=== PATIENT | female | born 1975 | race Caucasian/White ===

== ENCOUNTER 2017-08-17 16:37 | Emergency (ER) | payer OTHER ==
[2017-08-17 16:42] VITALS: BP 152/94; PULSE 98; TEMP 98.2; BMI 38.0
[2017-08-17] MEDS ORDERED: IBUPROFEN 600 MG TABLET (FP) PO ONE ×2 (17:14→17:15)
--- NOTE | 2017-08-17 17:15 | PDOC ---
History of Present Illness - General Chief Complaint: Ear Problem Stated Complaint: EAR INFECTION Time Seen by Provider: 08/17/17 16:54 - History of Present Illness Initial Comments: 08/17/17 17:10 CHIEF COMPLAINT: ear pain HISTORY OF PRESENT ILLNESS: 41 yo F with no PMH [facility] with ear pain x 3 days. PAtient states she went to her doctor today and diagnosed with ear infection but was prescribed medication that was "too expensive" and not covered by her insurance when she went to the pharmacy. Patient is not sure what the medication was. Patient denies fever, chills, vomiting, diarrhea. No recent travel or sick contacts. PAST MEDICAL HISTORY: Denies past medical history FAMILY HISTORY: Denies SOCIAL HISTORY: Denies tobacco, alcohol, illicit drug use. SURGICAL HISTORY: Denies ALLERGIES: No known drug allergies REVIEW OF SYSTEMS General/Constitutional: Denies fever or chills. HEENT: b/l ear pain Cardiovascular: Denies chest pain or shortness of breath. Respiratory: Denies cough, wheezing. PHYSICAL EXAM General Appearance: Well-appearing, appropriately dressed. No apparent distress. HEENT: Erythema and swelling to b/l auditory canals. EOMI, PERRLA, normal voice , pharynx normal. No conjunctival pallor. No photophobia, scleral icterus. Respiratory/Chest: Lungs CTAB. Cardiovascular: RRR. S1, S2. Musculoskeletal/Extremities: Normal inspection. FROM of all extremities. No tenderness to extremities, pedal edema, swelling, erythema or deformity. Integumentary: Appropriate color, dry, warm. No cyanosis, erythema, jaundice or rash Neurologic: secondary english teacher II-XII intact. Fully oriented, alert. Appropriate mood/affect. Motor strength 5/5. No appreciable EOM palsy, facial droop or sensory deficit. Past History - Past Medical History Allergies/Adverse Reactions: Allergies Allergy/AdvReac Type Severity Reaction Status Date / Time No Known Allergies Allergy Verified 08/17/17 16:41 Home Medications: Ambulatory Orders Ibuprofen 600 mg PO TID PRN #21 tablet 08/17/17 Neomycin/Polymyxn/Hc [Cortisporin Otic Solution -] 4 drop AU TID #1 bottle 08/17 Asthma: No Cancer: No Cardiac Disorders: No Diabetes: No HTN: No Seizures: No Thyroid Disease: No Other medical history: denies - Suicide/Smoking/Psychosocial Hx Smoking History: Never smoked Have you smoked in the past 12 months: No Information on smoking cessation initiated: No Hx Alcohol Use: No Drug/Substance Use Hx: No Substance Use Type: None Hx Substance Use Treatment: No *Physical Exam - Vital Signs Last Vital Signs Temp Pulse Resp BP Pulse Ox 98.2 F 98 H 18 152/94 100 08/17/17 16:39 08/17/17 16:39 08/17/17 16:39 08/17/17 16:39 08/17/17 16:39 Medical Decision Making - Medical Decision Making 08/17/17 17:14 41 yo F with no PMH [facility] to [facility] with ear pain x 3 days. Clinical presentation consistent with otitis externa. -corticosporin rx sent to pharm -ibuprofen for pain *DC/Admit/Observation/Transfer Diagnosis at time of Disposition: Otitis externa Qualifiers: Otitis externa type: unspecified type Chronicity: acute Laterality: bilateral Qualified Code(s): H60.503 - Unspecified acute noninfective otitis externa, bilateral - Discharge Dispostion Disposition: HOME Admit: No - Prescriptions Prescriptions: Neomycin/Polymyxn/Hc [Cortisporin Otic Solution -] 4 drop AU TID #1 bottle Ibuprofen 600 mg PO TID PRN #21 tablet PRN Reason: Pain - Referrals Referrals: Bailey Zavala MD [Primary Care Provider] - - Patient Instructions Printed Discharge Instructions: DI for Otitis Externa Additional Instructions: Please use medication as prescribed. Follow up with your primary care doctor next week. If you develop any increased pain, fever, chills, vomiting, diarrhea , or any new or worsening symptoms, please return to the ER.
== END 2017-08-17 17:21 | disposition home or self-care (01) ==
LOC: JERFT 16:37
DX: H60.503 Unspecified acute noninfective otitis externa, bilateral (principal)
CPT/HCPCS: 99281-25

== ENCOUNTER 2017-11-07 05:08 | Day surgery (SDC) | payer OTHER ==
[2017-11-06 07:35] VITALS: BMI 37.2
[2017-11-07] MEDS ORDERED: ACETAMINOPHEN INJECTION 100 ML IVPB ONE (06:56)
[2017-11-07] MEDS ORDERED: SUCCINYLCHOLINE CHLORIDE 200 MG/10 ML VIAL ONE (07:02)
[2017-11-07] MEDS ORDERED: ePHEDrine SULFATE 50 MG/1 ML AMPULE ONE (07:02)
[2017-11-07] MEDS ORDERED: MIDAZOLAM HCL 2 MG/2 ML SINGLE DOSE VIAL ONE ×2 (07:02)
[2017-11-07] MEDS ORDERED: PROPOFOL 20 ML ONE ×4 (07:02)
[2017-11-07] MEDS ORDERED: LIDOCAINE HCL/PF 2% SDV 5ML VIAL ONE (07:08)
--- NOTE | 2017-11-07 07:59 | HP ---
Admitting History and Physical - Admission Chief Complaint: Prolonged menses History of Present Illness: 42 yo Para 3 with 3 previous , diagnosed with menorrhagia, is Pre op for endometrial ablation History Source: Patient Limitations to Obtaining History: No Limitations - Past Medical History ...LMP: 10/31/17 ...: No - Past Surgical History Past Surgical History: Yes: - Smoking History Smoking history: Never smoked Have you smoked in the past 12 months: No - Alcohol/Substance Use Hx Alcohol Use: Yes (SOCIALLY) - Social History Usual Living Arrangement: Yes: With Spouse History of Recent Travel: No Home Medications - Allergies Allergies/Adverse Reactions: Allergies Allergy/AdvReac Type Severity Reaction Status Date / Time No Known Allergies Allergy Verified 11/07/17 07:10 - Home Medications Home Medications: Ambulatory Orders Multivitamin [One Daily] 1 each PO DAILY 11/06/17 Quincy-3 Fatty Acids [Quincy-3] 1,000 mg PO DAILY 11/06/17 Family Disease History - Family Disease History Family History: Unremarkable Review of Systems - Review of Systems Constitutional: reports: No Symptoms Eyes: reports: No Symptoms HENT: reports: No Symptoms Neck: reports: No Symptoms Cardiovascular: reports: No Symptoms Respiratory: reports: No Symptoms Gastrointestinal: reports: No Symptoms Breasts: reports: No Symptoms Reported Musculoskeletal: reports: No Symptoms Integumentary: reports: No Symptoms Neurological: reports: No Symptoms Endocrine: reports: No Symptoms Hematology/Lymphatic: reports: No Symptoms Psychiatric: reports: No Symptoms Pain Intensity: 0 Physical Examination Vital Signs: Vital Signs Temperature 98.0 F 11/07/17 07:09 Pulse Rate 78 11/07/17 07:09 Respiratory Rate 18 11/07/17 07:09 Blood Pressure 132/90 11/07/17 07:09 O2 Sat by Pulse Oximetry (%) 99 11/07/17 07:09 Constitutional: Yes: Well Nourished Eyes: Yes: Conjunctiva Clear HENT: Yes: Atraumatic Neck: Yes: Supple, Trachea Midline Cardiovascular: Yes: Regular Rate and Rhythm Respiratory: Yes: Regular, CTA Bilaterally Gastrointestinal: Yes: Normal Bowel Sounds Neurological: Yes: Alert, Oriented ...Motor Strength: WNL Psychiatric: Yes: Alert, Oriented Problem List - Problems (1) Menorrhagia Code(s): N92.0 - EXCESSIVE AND FREQUENT MENSTRUATION WITH REGULAR CYCLE Qualifiers: Menorrahagia type: with regular cycle Qualified Code(s): N92.0 - Excessive and frequent menstruation with regular cycle Assessment/Plan Menorrhagia Pre op for endometrial ablation Consent signed Anesthesia to see patient
[2017-11-07] MEDS ORDERED: ONDANSETRON 4 MG/2 ML VIAL ONE (08:13)
[2017-11-07] MEDS ORDERED: LIDOCAINE HCL 2% JELLY (5 ML/TUBE) ONE (08:16)
[2017-11-07] MEDS ORDERED: SODIUM CHLORIDE 0.9% P/F 10 ML VIAL IJ ONE (08:36)
[2017-11-07] MEDS ORDERED: ONDANSETRON 4 MG/2 ML VIAL IVPUSH PRN (09:14)
[2017-11-07] MEDS ORDERED: LACTATED RINGERS SOLUTION 1,000 ML IV SCH (09:15)
--- NOTE | 2017-11-07 09:20 | OP ---
Operative Note - Note: Operative Date: 11/07/17 Pre-Operative Diagnosis: Menorrhagia Operation: Hysteroscopic endometrial ablation Post-Operative Diagnosis: Same as Pre-op Surgeon: Ashley Shanks Anesthesia: General Specimens Removed: None Estimated Blood Loss (mls): 10
[2017-11-07] MEDS ORDERED: oxyCODONE HCL 5 MG TABLET ONE (10:56)
[2017-11-07 14:44] VITALS: BP 130/70; PULSE 60; TEMP 97.8
== END 2017-11-07 13:00 | disposition home or self-care (01) ==
LOC: JASU-SURG 05:08
PROVIDERS: ATTEND Obstetrics & Gynecology
PROC: 0U5B8ZZ Destruction of Endometrium, Via Natural or Artificial Opening Endoscopic (ICD-10-PCS; principal; 2017-11-07 08:00)
DX: N92.0 Excessive and frequent menstruation with regular cycle (principal)
CPT/HCPCS: 94760